=== PATIENT | male | born 1990 | race Caucasian/White ===

== ENCOUNTER 2017-12-04 14:58 | Emergency (ER) | payer BC ==
[~2017-12-04] VITALS: Ht 180.3 cm; Wt 140.7 kg
[2017-12-04 15:00] VITALS: TEMP 37; Ht 180.3 cm; Wt 140.7 kg
[2017-12-04] MEDS ORDERED: CLR10 PO (15:09)
[2017-12-04] MEDS ORDERED: PROB1TAB16 PO (15:09)
[2017-12-04] MEDS ORDERED: SODIUM CHLORIDE 0.9% 1000ML 1,000 ML IV STA (15:20)
--- NOTE | 2017-12-04 15:40 | EMERGENCY ROOM VISIT NOTE ---
History Report prepared by Milena: Delaney Decker Under the Supervision of: Dr. Ericka Navas M.D. First contact with patient: 15:10 Chief Complaint: GI ASSESSMENT Stated Complaint: BLOOD POOP AND BLOOD VOMIT History of Present Illness The patient is a 27 year old male who presents to the Emergency Room for a GI assessment. The patient states that last night around midnight he felt constipated. He states that he used some effort and got a "good amount out," but reports that it did not offer much relief. He states that it continued throughout the night feeling that way. He states that this morning he woke up and drank a small bit of water, but almost immediately vomited it up. He reports that the vomit was bile yellow and had bright red blood in it. He states that as the day went on his bowel movements became diarrhea started becoming bloody. Patient states he is having some abdominal discomfort and left lower quadrant. He has had no further vomiting. Patient denies fever, chest pain, shortness of breath, urinary difficulties. He also denies taking any aspirin or blood thinners. Source of History: patient Onset: last night Position: other (global) Quality: other (GI assessment) Timing: worsening Associated Symptoms: + vomiting, + hematochezia, No fevers Note: The patient denies pain around his rectum and feeling constipated. Review of Systems See HPI for pertinent positives & negatives. A total of 10 systems reviewed and were otherwise negative. Past Medical & Surgical Medical Problems: (1) History of pneumonia (2) Hx of bronchitis Surgical Problems: (1) H/O wisdom tooth extraction (2) S/P sinus surgery Family History Hypertension Social History Smoking Status: Never Smoker Alcohol Use: occasionally Marital Status: Housing Status: lives with family Occupation Status: employed Current/Historical Medications Scheduled Loratadine (Claritin), 10 MG PO DAILY Probiotic Product (Probiotic), 1 TAB PO DAILY Allergies Coded Allergies: No Known Allergies (Unverified , 12/04/17) Physical Exam Vital Signs Date Time Temp Pulse Resp B/P (MAP) Pulse Ox O2 Delivery O2 Flow Rate FiO2 12/04/17 17:14 81 18 139/87 97 Room Air 12/04/17 15:50 79 12/04/17 15:00 37.0 88 18 153/94 98 Room Air Physical Exam Vital signs reviewed. General: Well-appearing, in no significant distress. HEENT: No scleral icterus, PERRLA, neck supple. Atraumatic. Cardiovascular: Regular rate and rhythm, no extra sounds. Pulmonary: Clear to auscultation bilaterally, normal work of breathing. Abdomen: Soft, obese, nontender, nondistended, positive bowel sounds. Grossly bloody stool. Musculoskeletal: Atraumatic, no peripheral edema. Neurologic: Patient awake alert and oriented x 3 Skin: Warm, dry, no rash Medical Decision & Procedures ER Provider Diagnostic Interpretation: Radiology results as stated below per my review and radiologist interpretation: ABDOMEN AND PELVIS CT WITH IV CONTRAST CT DOSE: 1828.59 mGy.cm HISTORY: Acute abdominal pain with bloody stools PRBPR, multiple bloody BMs TECHNIQUE: Multiaxial CT images of the abdomen and pelvis were performed following the use of intravenous contrast. A dose lowering technique was utilized adhering to the principles of ALARA. COMPARISON STUDY: None. FINDINGS: Lung bases are clear. No pneumatosis or pneumoperitoneum. Imaged inferior cardiac chambers are unremarkable. Hepatomegaly with hepatic steatosis. No intrahepatic biliary ductal dilation. Gallbladder is mildly contracted. Spleen, pancreas and adrenal glands are within normal limits. 1.2 cm low attenuating lesion of the inferior pole right kidney suggests renal cyst. No renal calculi or obstructive uropathy. The ureters and bladder appear unremarkable. Prostate appears unremarkable. Aorta is within normal limits. No bulky adenopathy. No bowel obstruction or focal bowel wall thickening. No focal abnormality of the rectum identified. Nondistention seen involving the colon extending from the splenic flexure to the rectum with mild wall thickening. No significant pericolonic inflammatory changes. Terminal ileum appears normal. The appendix appears normal. No mesenteric inflammatory changes or ascites. Small fat filled periumbilical hernia, diastases 2.0 cm. Soft tissues are unremarkable. The bones appear intact. Mild facet arthrosis at L5-S1. IMPRESSION: 1. Mild wall thickening throughout the colon extending from the splenic flexure to the rectum is likely secondary to underdistention with a mild colitis also within the differential. Correlate with clinical exam and patient history. 2. Normal appendix. 3. Hepatic steatosis. 4. Small fat filled periumbilical hernia. Electronically signed by: Rex Brennan M.D. 12/04/2017 5:22 PM Dictated Date/Time: 12/04/2017 5:16 PM Laboratory Results 12/04/17 15:37 Red Blood Count 5.02, Mean Corpuscular Volume 88.0, Mean Corpuscular Hemoglobin 31.7, Mean Corpuscular Hemoglobin Concent 36.0, Mean Platelet Volume 10.9, Neutrophils (%) (Auto) 82.5, Lymphocytes (%) (Auto) 12.8, Monocytes (%) (Auto) 4.0, Eosinophils (%) (Auto) 0.2, Basophils (%) (Auto) 0.2, Neutrophils # (Auto) 9.65, Lymphocytes # (Auto) 1.50, Monocytes # (Auto) 0.47, Eosinophils # (Auto) 0.02, Basophils # (Auto) 0.02 12/04/17 15:37 Test 12/04/17 15:37 12/04/17 16:35 White Blood Count 11.69 K/uL (4.8-10.8) Red Blood Count 5.02 M/uL (4.7-6.1) Hemoglobin 15.9 g/dL (14.0-18.0) Hematocrit 44.2 % (42-52) Mean Corpuscular Volume 88.0 fL (80-100) Mean Corpuscular Hemoglobin 31.7 pg (25-34) Mean Corpuscular Hemoglobin Concent 36.0 g/dl (32-36) Platelet Count 234 K/uL (130-400) Mean Platelet Volume 10.9 fL (7.4-10.4) Neutrophils (%) (Auto) 82.5 % Lymphocytes (%) (Auto) 12.8 % Monocytes (%) (Auto) 4.0 % Eosinophils (%) (Auto) 0.2 % Basophils (%) (Auto) 0.2 % Neutrophils # (Auto) 9.65 K/uL (1.4-6.5) Lymphocytes # (Auto) 1.50 K/uL (1.2-3.4) Monocytes # (Auto) 0.47 K/uL (0.11-0.59) Eosinophils # (Auto) 0.02 K/uL (0-0.5) Basophils # (Auto) 0.02 K/uL (0-0.2) RDW Standard Deviation 40.5 fL (36.4-46.3) RDW Coefficient of Variation 12.8 % (11.5-14.5) Immature Granulocyte % (Auto) 0.3 % Immature Granulocyte # (Auto) 0.03 K/uL (0.00-0.02) Prothrombin Time 10.7 SECONDS (9.0-12.0) Prothromb Time International Ratio 1.0 (0.9-1.1) Activated Partial Thromboplast Time 25.8 SECONDS (21.0-31.0) Partial Thromboplastin Ratio 1.0 Anion Gap 8.0 mmol/L (3-11) Est Creatinine Clear Calc Drug Dose 164.6 ml/min Estimated GFR () 124.9 Estimated GFR (Non- 107.7 BUN/Creatinine Ratio 15.8 (10-20) Calcium Level 9.1 mg/dl (8.5-10.1) Total Bilirubin 0.6 mg/dl (0.2-1) Direct Bilirubin 0.1 mg/dl (0-0.2) Aspartate Amino Transf (AST/SGOT) 49 U/L (15-37) Alanine Aminotransferase (ALT/SGPT) 154 U/L (12-78) Alkaline Phosphatase 66 U/L (45-117) Total Protein 8.4 gm/dl (6.4-8.2) Albumin 4.2 gm/dl (3.4-5.0) Lipase 90 U/L (73-393) Stool Occult Blood POSITIVE (NEGATIVE) Date/Time Source Procedure Growth Status 12/04/17 16:35 Stool C.difficile Toxin B Gene (PCR) - Final No C. difficile toxin B gene detected Complete Laboratory results per my review. Medications Administered Medications (Trade) Dose Ordered Sig/Jose Route Start Time Stop Time Status Last Admin Dose Admin Sodium Chloride 1,000 ml @ 999 mls/hr Q1H1M STAT IV 12/04/17 15:20 12/04/17 16:20 DC 12/04/17 15:44 999 MLS/HR ED Course 1518: Past medical records reviewed. The patient was evaluated in room C8. A complete history and physical examination was performed. 1520: Ordered NSS 1000 ml @ 999 mls/hr IV. 1759: Upon reevaluation, the patient appeared to have improvement of his symptoms. I discussed findings with him. He verbalized agreement of the treatment plan. The patient was discharged home. Medical Decision Differential diagnosis: Etiologies such as diverticulosis, AVM, coagulopathy, colitis, inflammatory bowel disease, malignancy, Milana-Mckinley tear, esophagitis, peptic ulcer disease , variceal bleed, gastritis, epistaxis, fissure, hemorrhoids, as well as others were entertained. This patient was evaluated and appeared to be in no significant distress. Physical examination is fairly unrevealing. The patient did bring a stool sample with him that is a bright red frothy blood. Laboratory work is fairly unrevealing. H&H is stable. WBC is mildly elevated. Patient has mildly elevated liver enzymes which given his obesity is likely steatohepatitis. It may be viral in origin. CT scan of the abdomen and pelvis reveals a mild colitis. Stool cultures have been sent. Given the recent E. coli outbreak, relatively normal laboratory work, patient will not be treated with anything but conservative management at this time. He was advised against taking Lomotil that was prescribed earlier by the urgent care. The patient is also noted to be hypertensive, he states he has been seeing his PCP regarding this issue. Patient was advised to seek reevaluation by his PCP within the next several days. He will return to the emergency department for worsening of symptoms, fever, increased abdominal pain, increased blood in the stools or any medical concerns. Medication Reconcilliation Current Medication List: was personally reviewed by me Blood Pressure Screening Patient's blood pressure: Elevated blood pressure Blood pressure disposition: Referred to PCP Impression Primary Impression: Hematochezia Additional Impression: Diarrhea Scribe Attestation The scribe's documentation has been prepared under my direction and personally reviewed by me in its entirety. I confirm that the note above accurately reflects all work, treatment, procedures, and medical decision making performed by me. Departure Information Dispostion Home / Self-Care Referrals No Doctor, Assigned (PCP) Forms HOME CARE DOCUMENTATION FORM, IMPORTANT VISIT INFORMATION Patient Instructions My [facility] Additional Instructions Diagnosis: Hematochezia, diarrhea Drink plenty of clear fluids. Tylenol 650 mg every 6 hours as needed for pain or fever. Avoid dairy products. Follow-up with your physician in 24-48 hours for reevaluation. Return to the ED immediately for worsening of symptoms, high fevers, increased pain or any medical concerns. Your stool cultures are pending and will be resulted in approximately 48 hours. Problem Qualifiers
[2017-12-04] MEDS ORDERED: OPTIRAY 320 IV PRN (15:45)
[2017-12-04 15:50] LABS: BASO % 0.2 %; BASO ABS # 0.02 K/uL (0-0.2); EOS % 0.2 %; EOS ABS # 0.02 K/uL (0-0.5); HEMATOCRIT 44.2 % (42-52); HEMOGLOBIN 15.9 g/dL (14.0-18.0); IG# 0.03 K/uL (0.00-0.02); LYMPH % 12.8 %; MEAN CORPUSCULAR HEMOGLOBIN 31.7 pg (25-34); MEAN PLATELET VOLUME 10.9 fL (7.4-10.4); MONO ABS # 0.47 K/uL (0.11-0.59); NEUT % 82.5 %; NEUT ABS # 9.65 K/uL (1.4-6.5); PLATELET COUNT 234 K/uL (130-400); RED CELL DISTRIBUTION WIDTH CV 12.8 % (11.5-14.5); RED CELL DISTRIBUTION WIDTH SD 40.5 fL (36.4-46.3); WHITE BLOOD COUNT 11.69 K/uL (4.8-10.8)
[2017-12-04 15:58] LABS: PTT PATIENT 25.8 SECONDS (21.0-31.0)
[2017-12-04 16:07] LABS: ALBUMIN 4.2 gm/dl (3.4-5.0); CALCIUM 9.1 mg/dl (8.5-10.1); CREATININE 0.95 mg/dl (0.60-1.40)
[2017-12-04 16:10] LABS: TOTAL PROTEIN 8.4 gm/dl (6.4-8.2)
[2017-12-04 17:14] VITALS: BP 139/87; PULSE 81; O2SAT 97
--- NOTE | 2017-12-04 17:24 | DIAGNOSTIC IMAGING REPORT ---
ABDOMEN AND PELVIS CT WITH IV CONTRAST CT DOSE: 1828.59 mGy.cm HISTORY: Acute abdominal pain with bloody stools PRBPR, multiple bloody BMs TECHNIQUE: Multiaxial CT images of the abdomen and pelvis were performed following the use of intravenous contrast. A dose lowering technique was utilized adhering to the principles of ALARA. COMPARISON STUDY: None. FINDINGS: Lung bases are clear. No pneumatosis or pneumoperitoneum. Imaged inferior cardiac chambers are unremarkable. Hepatomegaly with hepatic steatosis. No intrahepatic biliary ductal dilation. Gallbladder is mildly contracted. Spleen, pancreas and adrenal glands are within normal limits. 1.2 cm low attenuating lesion of the inferior pole right kidney suggests renal cyst. No renal calculi or obstructive uropathy. The ureters and bladder appear unremarkable. Prostate appears unremarkable. Aorta is within normal limits. No bulky adenopathy. No bowel obstruction or focal bowel wall thickening. No focal abnormality of the rectum identified. Nondistention seen involving the colon extending from the splenic flexure to the rectum with mild wall thickening. No significant pericolonic inflammatory changes. Terminal ileum appears normal. The appendix appears normal. No mesenteric inflammatory changes or ascites. Small fat filled periumbilical hernia, diastases 2.0 cm. Soft tissues are unremarkable. The bones appear intact. Mild facet arthrosis at L5-S1. IMPRESSION: 1. Mild wall thickening throughout the colon extending from the splenic flexure to the rectum is likely secondary to underdistention with a mild colitis also within the differential. Correlate with clinical exam and patient history. 2. Normal appendix. 3. Hepatic steatosis. 4. Small fat filled periumbilical hernia. Electronically signed by: Rex Brennan M.D. 12/04/2017 5:22 PM Dictated Date/Time: 12/04/2017 5:16 PM
== END 2017-12-04 18:18 | disposition home or self-care (01) ==
LOC: C.EDB 14:59 → C.EDC 18:18
DX: K92.1 Melena (principal); R19.7 Diarrhea, unspecified; Z87.01 Personal history of pneumonia (recurrent); Z82.49 Family history of ischemic heart disease and other diseases of the circulatory system; Z79.899 Other long term (current) drug therapy